=== PATIENT | female | born 1940 | race Caucasian/White ===

== ENCOUNTER 2018-11-01 12:49 | Emergency (ER) | payer BC, MEDICARE ==
[~2018-11-01 12:49] MED LIST: Alteplase* 100 MG VIAL ONE
[2018-11-01] MEDS ORDERED: Alteplase* 100 MG VIAL ONE (12:53)
[2018-11-01] MEDS ORDERED: NS 0.9% 1000 ML** 1,000 ML IV ONE (12:54)
--- NOTE | 2018-11-01 12:59 | ED ---
Neurological HPI - HPI Summary HPI Summary: ALFONZO NEVAREZ CALLED AT 1243 prior to arrival by EMS, [facility] for ambulance at 1319. Dr. Osborne saw the patient at 1248. The patient was sent to CT at 1249. The patient arrived in room at 1305. LEVEL 5 CAVEAT DUE TO PATIENT BEING NON-VERBAL. 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 Per EMS, the patients eyes are looking to the left but her body is leaning towards the right. Initial call to EMS was because the patient had a fall in the bathroom. The fall was unwitnessed but son heard her fall in the bathroom. Son did not see the patient walk into the bathroom. EMS found the patient between the bathtub and the toilet. The patient is currently non-verbal which EMS does not think is her baseline. She was last known well at 1130 when she was able to walk to the bathroom, but hx available when son arrived was he did not see her walk to bathromm. About 2100 last night , the patient was seen going to bed. That was the last time that she was for sure known well. Symptoms aggravated by nothing. Symptoms alleviated by nothing. Current vitals include 90 BPM, 96 O2 sat, and BP 123/64. Pt is not on anticoagulants. Home Medications Medication Instructions Recorded Confirmed Type Bumetanide TAB* [Bumex 2 MG TAB*] 2 mg PO DAILY 11/01/18 11/01/18 History Chlorzoxazone 500 mg PO QID PRN 11/01/18 11/01/18 History Levothyroxine TAB* [Synthroid TAB*] 88 mcg PO DAILY 11/01/18 11/01/18 History Simvastatin 20 mg PO DAILY 11/01/18 11/01/18 History Verapamil HCl [Verapamil ER] 180 mg PO DAILY 11/01/18 11/01/18 History - History of Current Complaint Stated Complaint: POSSIBLE CVA PER EMS Time Seen by Provider: 11/01/18 12:49 Last Known Well Date: 1130 THIS MORNING Hx Obtained From: Family/Propagation Worker - Son, EMS Hx From Patient Unobtainable Due To: Other - Patient is non-verbal, possibly due to stroke. Onset/Duration: Sudden Onset, Started hours ago - last known well was at 1130, revised to 2100 10/31/18, Still Present Timing: Constant Onset Severity: Severe Current Severity: Severe - unknown if GREEN Neurological Deficit Location: Facial, RUE Pain Intensity: 0 Character: Motor Weakness, Impaired Speech, Other: - right facial droop Syncope Timin:30am Episode Lasting: Seconds/Minutes - fell in bathroom Number of Episodes: 1 Syncope Context: Unwitnessed - heard her fall, son went to [place] Frequency: Episodes x___ - 1, Episodes Lasting ____ (in Mins/Days/Weeks/Years) - mins Syncope Location: Eye Deviation Aggravating: Nothing Alleviating: Nothing Associated Signs and Symptoms: Positive: Weakness - the patients eyes are looking to the left but her body is leaning towards the right, Decreased Level of Consciousness, AMS, Impaired Speech TPA Considered: Yes - stopped after bolus, ischemic changes on CT, with Left MCA , revised LKW - Allergy/Home Medications Allergies/Adverse Reactions: Allergies Allergy/AdvReac Type Severity Reaction Status Date / Time Penicillins Allergy Hives/Diff. Verified 11/01/18 13:28 Breathing/I tching Home Medications: Home Medications Bumetanide TAB* [Bumex 2 MG TAB*] 2 mg PO DAILY 11/01/18 [History Confirmed 06/12] Chlorzoxazone 500 mg PO QID PRN 11/01/18 [History Confirmed 11/01/18] Levothyroxine TAB* [Synthroid TAB*] 88 mcg PO DAILY 11/01/18 [History Confirmed 11/01/18] Simvastatin 20 mg PO DAILY 11/01/18 [History Confirmed 11/01/18] Verapamil HCl [Verapamil ER] 180 mg PO DAILY 11/01/18 [History Confirmed ] PMH/Surg Hx/FS Hx/Imm Hx Previously Healthy: No - LEVEL 5 CAVEAT DUE TO PATIENT BEING NON-VERBAL Cardiovascular History: Reports: Hx Coronary Artery Disease, Hx Hypertension - Surgical History Surgery Procedure, Year, and Place: unknown -LEVEL 5 CAVEAT Infectious Disease History: Unable to Obtain/Confirm - Family History Known Family History: Positive: Unknown - LEVEL 5 CAVEAT DUE TO PATIENT BEING NON-VERBAL Family History: LEVEL 5 CAVEAT DUE TO PATIENT BEING NON-VERBAL - Social History Lives: With Family - with son; THE REST OF SOCIAL HX UNKNOWN DUE TO LEVEL 5 CAVEAT DUE TO PATIENT BEING NON-VERBAL Alcohol Use: unknown LEVEL 5 CAVEAT Substance Use Type: Reports: Other - UNKNOWN level 5 caveat Smoking Status (MU): Unknown if Ever Smoked Review of Systems Positive: Other - gaze deviation Positive: Other - patient had a fall in the bathroom Neurological: Other - Per EMS, the patients eyes are looking to the left but her body is leaning towards the right, high NIH, mute, eye deviated to left, no effort against gravity: cannot follow commands; unconscious All Other Systems Reviewed And Are Negative: No - Comments Additional Review of Systems Comments: LEVEL 5 CAVEAT DUE TO PATIENT BEING NON-VERBAL Physical Exam - Summary Physical Exam Summary: Appearance: ill-appearing, moderate pain distress, well-nourished Skin: Warm, color reflects adequate perfusion, dry Head: Normal Head/Face inspection, atraumatic Eyes: Conjunctiva clear, eye deviation left, pupils 2mm equal ENT: Normal inspection Neck: Supple, no nodes, no JVD Respiratory: Lungs clear, normal breath sounds, no respiratory distress, decreased BS Cardio: RRR, No murmur, pulses normal, brisk capillary refill Abdomen: Soft, nontender Bowel sounds: Present Musculoskeletal: no calf tenderness, no edema. Psychological: Normal Neuro: see NIH, unconscious, right facial droop, moves both legs and arms, cannot follow commands Triage Information Reviewed: Yes Vital Signs On Initial Exam: Initial Vitals Temp Pulse Resp BP Pulse Ox 97.8 F 87 19 116/74 99 11/01/18 13:07 11/01/18 13:07 11/01/18 13:07 11/01/18 13:07 11/01/18 13:07 Vital Signs Reviewed: Yes Diagnostics - Laboratory Result Diagrams: 11/01/18 13:15 11/01/18 13:15 Lab Statement: Any lab studies that have been ordered have been reviewed, and results considered in the medical decision making process. - CT Brain CT CT Interpretation Completed By: Radiologist Summary of CT Findings: LEFT middle cerebral artery distribution ischemic infarct with mild mass effect. Negative for midline shift or downward herniation. Hyperdense LEFT MCA consistent with large vessel occlusion with subsequent CT angiogram documenting a short segment marked high-grade partial or occluded segment at the peripheral LEFT MCA M1 segment. Dr. Osborne has reviewed this radiology report. Head CTA CT Interpretation Completed By: Radiologist Summary of CT Findings: Short segment (2 mm length) marked high-grade stenosis of the distal M1 segment of the LEFT middle cerebral artery estimated at 99%. Associated decreased contrast opacification of the distal LEFT M1 and M2 middle cerebral artery segments. Dr. Osborne has reviewed this radiology report. 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 Facial Paresis-Pt to Smile & Close Eyes or Grimace Symmetry: Partial Paralysis Motor Function - Right Arm: No Effort Against [place] Motor Function - Left Arm: No Effort Against [place] Motor Function - Right Leg: No Effort Against [place] Motor Function - Left Leg: No Effort Against [place] Limb Ataxia-Must be out of Proportion to Weakness Present: Absent Sensory (Use Pinprick to Test Arms/Legs/Trunk/Face): Normal Best Language (Describe Picture, Name Items): Mute/Global Aphasia Dysarthria (Read Several Words): Normal Extinction and Inattention: No Abnormality Total Score: 28 Course/Dx - Course Assessment/Plan: ALFONZO NEVAREZ CALLED AT 1243. LEVEL 5 CAVEAT DUE TO PATIENT BEING NON-VERBAL. 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 In the ED course, the patient was given fluids and bolus of TPA, DC'd per Dr. Pickard, with findings on CT of ischemic infarct. Brain CT reveals LEFT middle cerebral artery distribution ischemic infarct with mild mass effect. Negative for midline shift or downward herniation. Hyperdense LEFT MCA consistent with large vessel occlusion with subsequent CT angiogram documenting a short segment marked high- grade partial or occluded segment at the peripheral LEFT MCA M1 segment. Head CTA reveals short segment (2 mm length) marked high-grade stenosis of the distal M1 segment of the LEFT middle cerebral artery estimated at 99%. Associated decreased contrast opacification of the distal LEFT M1 and M2 middle cerebral artery segments. Due to the weather, [employer] says that no helicopters will be flying today. [facility] was called at 1319. Spoke with Dr. Hernandez at 1314 says this case is a MCA LVO. Dr. Carlos (interventional stroke radiologist) from [facility] transfer center was called at 1304 about the patients case. They will not be taking the patient due to the weather. Spoke with Dr. Pickadr from [facility] at 1320 who accepts the patient for transfer. Spoke with Dr. Hernandez at [address] Osborne and Dr. Pickard from [facility]. In the ED course, the patient was given Alteplase bolus, infusion DC'd, and fluids. Pt medications reviewed this visit. Nurses note reviewed. Allergies noted. Labs were remarkable for RBC 3.80L, Hgb 11.5L, POC Glucose 170. 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 Carlos [facility], and Dr. Hernandez Instructed by Provider To: Transfer Admit/Transition Orders Completed By ED Provider: No - Critical Care Time Critical Care Time: 30-74 min - 30mins Discharge - Sign-Out/Discharge Documenting (check all that apply): Patient Departure Patient Received Moderate/Deep Sedation with Procedure: No - Discharge Plan Condition: Critical Disposition: TRANS HIGHER LVL OF CARE FAC Referrals: Lali Alex DO [Primary Care Provider] - - Billing Disposition and Condition Condition: CRITICAL Disposition: Trans Higher Lvl of Care Fac - Attestation Statements Document Initiated by Scribe: Yes Documenting Scribe: Tony Alvarez Provider For Whom Scribe is Documenting (Include Credential): Rivka Osborne MD Scribe Attestation: Tony Thompson, scribed for Rivka Osborne MD on 11/01/18 at 1346. Scribe Documentation Reviewed: Yes Provider Attestation: The documentation as recorded by the scribe, Tony Alvarez accurately reflects the service I personally performed and the decisions made by me, Rivka Osborne MD Status of Sharron Document: Viewed
[2018-11-01] MEDS ORDERED: Iodixanol* (CONTRAST) 320 MG/ML 100 ML SDV IV ONE (13:10)
[2018-11-01] MEDS ORDERED: Alteplase* 100 MG VIAL IV ONE (13:18)
[2018-11-01 13:27] LABS: ABS Basophils 0 10^3/ul (0-0.2); ABS Eosinophils 0.1 10^3/ul (0-0.6); ABS Lymphocytes 1.7 10^3/ul (1.0-4.8); ABS Monocytes 0.6 10^3/ul (0-0.8); ABS Neutrophils 6.4 10^3/ul (1.5-7.7); ABS Nucleated RBC 0 10^3/ul; Eosinophil % 1.1 %; Hematocrit 35 % (35-47); Hemoglobin 11.5 g/dl (12.0-16.0); Mean Corpuscular HGB Conc 33 g/dl (31-36); Mean Corpuscular Hemoglobin 30 pg (27-31); Mean Corpuscular Volume 91 fL (80-97); Mean Platelet Volume 8.3 fL (7.4-10.4); Nucleated Red Blood Cells % 0; Platelet Count 252 10^3/ul (150-450); Red Cell Distribution Width 15 % (10.5-15); White Blood Count 8.8 10^3/ul (3.5-10.8)
[2018-11-01 13:36] LABS: Activated Partial Thrombo Time 29.7 seconds (26.0-36.3); INR 1.01 (0.77-1.02)
[2018-11-01 13:44] LABS: Albumin 3.6 g/dL (3.2-5.2); Albumin/Globulin Ratio 1.2 (1-3); BUN/Creatinine Ratio 24.4 (8-20); Calcium 9.3 mg/dL (8.6-10.3); EGFR African American 73.5 (>60); EGFR Non-African American 60.7 (>60); Globulin 2.9 g/dL (2-4); HDL Cholesterol 50.7 mg/dL; Total Bilirubin 0.2 mg/dL (0.2-1.0); Total Protein 6.5 g/dL (6.4-8.9)
[2018-11-01 13:53] VITALS: BP 136/74
== END 2018-11-01 13:51 | disposition short-term general hospital (02) ==
LOC: ED 12:49
DX: I63.412 Cerebral infarction due to embolism of left middle cerebral artery (principal); I63.543 Cerebral infarction due to unspecified occlusion or stenosis of bilateral cerebellar arteries; R29.810 Facial weakness; R47.89 Other speech disturbances; R53.1 Weakness; I25.10 Atherosclerotic heart disease of native coronary artery without angina pectoris; I10 Essential (primary) hypertension; Z88.0 Allergy status to penicillin
CPT/HCPCS: 36415; 70450; 70496; 70498; 71045; 80053; 80061; 83605; 84484; 85025; 85610; 85730; 86850; 86900; 86901; 93005; 96374; 99285; J2997; Q9967